=== PATIENT | male | born 1995 | race Caucasian/White ===

== ENCOUNTER → 2021-10-17 08:36 | Outpatient (CLI) | payer OTHER, SELFPAY ==
--- NOTE | 2021-10-17 | DI.RAD.S_ITS ---
PROCEDURE: FL WRIST INJECTION MR/CT LT INDICATIONS: Displaced fracture of left ulna styloid process, subsequent COMPARISON: None. TECHNIQUE: After informed consent had been obtained, the wrist was examined fluoroscopically, and a site chosen for injection of the radiocarpal compartment from a dorsal approach. Skin was prepped and draped in a sterile fashion and 1% lidocaine infiltrated from the skin down to the articular surface. A hypodermic needle was then introduced into the articular space and a modest amount of contrast medium was instilled confirming intra-articular needle tip placement. This was followed by approximately 4 mL of a dilute gadolinium solution. Needle was removed and dressing was applied. The patient experienced no complications throughout the procedure and left the fluoroscopic suite in no apparent distress. FINDINGS: A single fluoroscopic spot image demonstrates intra-articular location to injected iodinated contrast. IMPRESSION: Successful fluoroscopic-guided administration of dilute Gadolinium solution for wrist MR arthrogram. Dictated by: Felicia Mayen MD, PhD on 10/17/2021 at 10:40 Approved by: Felicia Mayen MD, PhD on 10/17/2021 at 10:40
--- NOTE | 2021-10-17 | DI.MRI.S_ITS ---
PROCEDURE: MR WRIST LT W CON INDICATIONS: Displaced fracture of left ulna styloid process, subsequent TECHNIQUE: After the administration of 3-4 mL of dilute intra-articular Gadolinium contrast into the radiocarpal compartment, coronal T1 spin echo with fat saturation and T2 fast spin echo with fat saturation, axial T1 spin echo and T2 fast spin echo with fat saturation, sagittal T1 spin echo with and without fat saturation through the wrist. COMPARISON: Outside Film, MR, MR WRIST LEFT WITHOUT CONTRAST, 01/04/2021, 7:20. [facility], RF, [place] WRIST INJECTION MR/CT LT, 10/17/2021, 8:58. [facility], CR, XR WRIST 3+ VIEWS LEFT, 01/16/2021, 9:20. FINDINGS: Image quality: Excellent. Bones and cartilage: The carpal bones are normally aligned. A chronic mildly displaced nonedematous ulnar styloid fracture fragment is seen, consistent with prior trauma. No acute bone marrow contusions or fractures. No evidence for avascular necrosis. Carpal ligaments: Radiocarpal contrast material is seen within the midcarpal compartment. There is mild irregularity of the scapholunate ligament at the dorsal membranous portion that may represent a focal perforation. The bulk of the scapholunate ligament is intact, including the dorsal and volar bands. The dorsal and volar portions of the lunotriquetral ligament are intact. On sagittal images, the pisohamate ligament appears intact. Triangular fibrocartilage complex: A focal full-thickness defect is seen in the central triangle fibrocartilage disc. The ulnar styloid attachment inserts onto the mildly displaced ulnar styloid fracture fragment. The ulnar foveal attachment remains intact. The dorsal and volar radioulnar ligaments are grossly intact. A small amount of radiocarpal contrast material is seen within the distal radioulnar joint space. Tendons and soft tissues: The carpal tunnel structures appear normal, including the median nerve. The ulnar nerve appears normal within Guyon's canal. All six extensor tendon compartments demonstrate normal morphology, without pathologic tendon sheath fluid. No soft tissue ganglion cysts. IMPRESSION: 1. Chronic mildly displaced nonedematous ulnar styloid fracture. 2. Focal full-thickness perforation of the central triangular fibrocartilage disc. The ulnar styloid attachment of the triangular fibrocartilage is continuous with the displaced ulnar styloid fracture fragment. Small amount of radiocarpal contrast material is seen in the distal radioulnar joint. 3. Suspected focal perforation of the scapholunate ligament at the dorsal membranous portion. The bulk of the ligament fibers including the dorsal and volar bands are intact. No widening of the scapholunate interval. Radiocarpal contrast material is seen within the midcarpal joint. Dictated by: Sanjay Silva M.D. on 10/17/2021 at 11:04 Approved by: Sanjay Silva M.D. on 10/17/2021 at 11:28
== END ==
PROVIDERS: PCP Nurse Practitioner Family; Referring Provider Orthopaedic Surgery; Visit Provider Orthopaedic Surgery
DX: S52.612D Displaced fracture of left ulna styloid process, subsequent encounter for closed fracture with routine healing (principal); X58.XXXD Exposure to other specified factors, subsequent encounter
CPT/HCPCS: 20605; 73222; 76000

== ENCOUNTER → 2022-11-13 15:53 | Outpatient (CLI) | payer OTHER, SELFPAY ==
--- NOTE | 2022-11-13 | DI.MRI.S_ITS ---
PROCEDURE: MR WRIST LT WO CON INDICATIONS: Pain in left wrist TECHNIQUE: Noncontrast coronal proton density fast spin echo and T2 fast spin echo with fat saturation; coronal 3-D gradient echo, axial T1 spin echo and T2 fast spin echo with fat saturation, sagittal T1 spin echo through the wrist. COMPARISON: Outside Film, MR, MR WRIST LEFT WITHOUT CONTRAST, 01/04/2021, 7:20. [facility], MR, MR WRIST LT W CON, 10/17/2021, 9:13. [facility], CR, XR WRIST 3+ VIEWS LEFT, 09/25/2022, 10:11. FINDINGS: Image quality: Excellent. Bones and cartilage: The carpal bones are normally aligned. Postsurgical changes are noted involving distal ulnar shaft likely represent triangular fibrocartilage repair. Patient's known displaced ulnar styloid tip fracture is again seen and is unchanged. No marrow edema is noted. No evidence for avascular necrosis. Carpal ligaments: The scapholunate and lunotriquetral ligaments appear intact. In the absence of intra-articular contrast, the extrinsic carpal ligaments are not well identified. On sagittal images, the pisohamate ligament appears intact. Triangular fibrocartilage complex: Heterogeneous signal within central portion of triangular fibrocartilage is seen likely represent postsurgical changes. No definite TFC tear is seen on the current study. The adjacent meniscal homolog appears normal in the absence of intra-articular contrast. The extensor carpi ulnaris tendon is normal in location and morphology. Tendons and soft tissues: The carpal tunnel structures appear normal, including the median nerve. The ulnar nerve appears normal within Guyon's canal. All six extensor tendon compartments demonstrate normal morphology, without pathologic tendon sheath fluid. No soft tissue ganglion cysts. IMPRESSION: 1. Postsurgical changes in distal ulna. Old slightly displaced fracture involving ulnar styloid tip. No acute fracture or dislocation. No evidence of avascular necrosis. 2. Postsurgical changes are seen in central portion of triangular fibrocartilage. No evidence of recurrent tear is seen on the current study. 3. Scapholunate and lunotriquetral ligaments are grossly intact. 4. Extensor and flexor tendons are grossly intact. Dictated by: Nickolas Sorto M.D. on 11/13/2022 at 16:57 Approved by: Nickolas Sorto M.D. on 11/13/2022 at 17:03
== END ==
PROVIDERS: PCP Nurse Practitioner Family; Referring Provider Orthopaedic Surgery Hand Surgery; Visit Provider Orthopaedic Surgery Hand Surgery
DX: M25.532 Pain in left wrist (principal); S52.612S Displaced fracture of left ulna styloid process, sequela; S63.502S Unspecified sprain of left wrist, sequela
CPT/HCPCS: 73221